=== PATIENT | female | born 1970 ===

== ENCOUNTER 2020-08-24 18:52 | Outpatient (REF) | payer OTHER, SELFPAY ==
[2020-08-24 22:04] LABS: Anion Gap 9.9 mmol/L (3-11); BUN 13 mg/dL (7-18); CO2 27.1 mmol/L (21.0-32.0); CREATININE 0.7 mg/dL (0.55-1.02); Chloride 102 mmol/L (98-107); FREE T4 0.97 ng/dL (0.76-1.46); Glucose 86 mg/dL (74-106); Potassium 4.1 mmol/L (3.5-5.1); Sodium 139 mmol/L (136-145); TSH 2.54 uIU/mL (0.36-3.74)
[2020-08-25 16:24] LABS: T3,Free 3.8 pg/mL (2.8-5.3)
[2020-08-26 10:47] LABS: Hepatitis C Ab w Rflx HCV PCR Negative (Negative)
== END 2020-08-24 18:53 | disposition home or self-care (01) ==
LOC: NCHCN 18:52
PROVIDERS: Visit Provider Nurse Practitioner Family
DX: R42 Dizziness and giddiness (principal); E04.1 Nontoxic single thyroid nodule; Z11.59 Encounter for screening for other viral diseases
CPT/HCPCS: 80048; 86803; 84439; 84443; 84481; 85025

== ENCOUNTER → 2023-08-10 00:51 | Outpatient (CLI) | payer OTHER, SELFPAY ==
--- NOTE | 2023-08-10 | DI.RAD_ITS ---
Exam(s) XR CERVICAL SPINE COMP 4-5V EXAM: XR CERVICAL SPINE COMP 4-5V CLINICAL HISTORY: CERVICALGIA,M54.2. TECHNIQUE: 2D digital imaging was performed. Images were obtained. AP, odontoid, lateral and bilat eral oblique images were obtained. COMPARISON: No exams were available for comparison FINDINGS: The odontoid is intact. The lateral masses are well aligned. There is normal alignment of the cervi agatha spine. At C5-C6 there is disc space narrowing and endplate osteophytes. The disc levels are othe rwise well maintained. No acute fracture or subluxation is present. There is minimal narrowing of th e neural foramen bilaterally at C5-C6. The cervical thoracic junction is well maintained. The prever tebral soft tissues are unremarkable. Lung apices are clear. IMPRESSION: Mild degenerative changes at C5-C6 resulting in very mild narrowing of the neural foramen bilaterally . DATA REPOSITORY: RADIATION DOSE DELIVERED:
== END ==
PROVIDERS: Visit Provider Nurse Practitioner Family
DX: M50.122 Cervical disc disorder at C5-C6 level with radiculopathy (principal)
CPT/HCPCS: 72050